=== PATIENT | male | born 1980 ===

== ENCOUNTER 2024-09-21 12:50 | Emergency (ER) | payer SELFPAY ==
[2024-09-21] MEDS ORDERED: Ketorolac Tromethamine 30 MG (1 mL) VIAL ONE (13:39)
[2024-09-21] MEDS ORDERED: Ipratropium/Albuterol 3 ML NEB ONE (13:39)
[2024-09-21] MEDS ORDERED: Azithromycin 250 MG TAB ONE (13:39)
[2024-09-21] MEDS ORDERED: Dexamethasone 20 MG/5 ML VIAL ONE (13:39)
[2024-09-21] MEDS ORDERED: Prochlorperazine 10 MG/2 ML VIAL ONE (13:39)
[2024-09-21] MEDS ORDERED: Acetaminophen 500 MG TAB ONE (13:39)
== END 2024-09-21 15:48 | disposition home or self-care (01) ==
LOC: ERS 12:50
DX: J11.1 Influenza due to unidentified influenza virus with other respiratory manifestations (principal); J18.9 Pneumonia, unspecified organism; J45.909 Unspecified asthma, uncomplicated; I10 Essential (primary) hypertension; K21.9 Gastro-esophageal reflux disease without esophagitis; F17.220 Nicotine dependence, chewing tobacco, uncomplicated; Z79.899 Other long term (current) drug therapy
CPT/HCPCS: 70450; 71046; 96365; 96375; J0780; J1100; J1885; J7620